=== PATIENT | female | born 1995 | race Hispanic/Latino ===

== ENCOUNTER 2020-04-28 03:17 | Emergency (ER) | payer OTHER ==
[2020-04-28] MEDS ORDERED: Ibuprofen 200 MG TAB ONE (04:04)
[2020-04-28] MEDS ORDERED: Acetaminophen 500 MG TAB ONE (04:04)
== END 2020-04-28 04:00 | disposition home or self-care (01) ==
LOC: ERS 03:17
DX: J06.9 Acute upper respiratory infection, unspecified (principal); H92.03 Otalgia, bilateral
CPT/HCPCS: 99283

== ENCOUNTER 2022-03-11 13:36 | Outpatient (CLI) | payer OTHER | END 2022-03-11 13:37 | disposition home or self-care (01) | LOC: BICRAD 13:36 | PROVIDERS: ATTEND Family Medicine | DX: M25.561 Pain in right knee (principal); M25.562 Pain in left knee ==